=== PATIENT | female | born 1995 | race Caucasian/White ===

== ENCOUNTER 2017-01-18 11:26 | Emergency (ER) | payer OTHER ==
[~2017-01-18] VITALS: Ht 165.1 cm; Wt 64.3 kg
[2017-01-18] MEDS ORDERED: FLEXERIL10 MG PO (14:21)
[2017-01-18] MEDS ORDERED: LIDODERM 5% P1 PATCH TD (14:21)
[2017-01-18] MEDS ORDERED: NAPROXEN500 MG PO (14:21)
[2017-01-18] MEDS ORDERED: PREDNISONE20 MG PO (14:21)
[2017-01-18 14:46] VITALS: BP 115/72
== END 2017-01-18 14:56 | disposition home or self-care (01) ==
LOC: EME 11:26
PROC: 3E0234Z Introduction of Serum, Toxoid and Vaccine into Muscle, Percutaneous Approach (ICD-10-PCS; principal; 2017-01-18)
DX: M54.31 Sciatica, right side (principal); S30.810A Abrasion of lower back and pelvis, initial encounter; S30.0XXA Contusion of lower back and pelvis, initial encounter; W18.39XA Other fall on same level, initial encounter; Y93.89 Activity, other specified; Y92.71 Barn as the place of occurrence of the external cause; Z23 Encounter for immunization
CPT/HCPCS: 72110; 99281; 99283; J1885; J3010; J7512